=== PATIENT | female | born 1975 | race Caucasian/White ===

== ENCOUNTER 2017-08-20 16:36 | Emergency (ER) | END 2017-08-20 18:50 | disposition home or self-care (01) ==

== ENCOUNTER 2017-08-24 11:55 | Emergency (ER) | END 2017-08-24 14:15 | disposition home or self-care (01) ==

== ENCOUNTER 2018-04-26 21:02 | Emergency (ER) | END 2018-04-27 01:50 | disposition home or self-care (01) ==

== ENCOUNTER 2018-05-05 15:17 | Emergency (ER) | payer SELFPAY ==
[~2018-05-05] VITALS: Wt 70.8 kg
[~2018-05-05 15:17] MED LIST: DOCU-144 PO; FAMO20TA18 PO; GLYC1SUP92 PR; IBUP-1542 PO; ONDA4TAB8 PO
[2018-05-05 15:20] VITALS: BP 135/85; PULSE 89; RESP 20
[2018-05-05] MEDS ORDERED: ACETAMINOPHEN 325 MG TAB PO ONE (16:00)
[2018-05-05] MEDS ORDERED: IBUPROFEN 600 MG TAB PO ONE (16:00)
[2018-05-05] MEDS ORDERED: CEPH-443 PO (16:00)
[2018-05-05] MEDS ORDERED: IBUP-1542 PO (16:00)
[2018-05-05] MEDS ORDERED: BACITRACIN 0.9 GM OINT ONE (16:03)
--- NOTE | 2018-05-05 16:07 | ERD ---
ER Documentation Chief Complaint Chief Complaint left hand index finger suture removal x8days HPI 42-year-old female presents emerged department for suture removal of a repaired laceration that was done 8 days prior to being seen. On her left index finger. Patient states that she still has pain rates it moderate in severity. Denies any fevers. ROS All systems reviewed and are negative except as per history of present illness. Medications Home Meds Active Scripts Ibuprofen* (Motrin*) 600 Mg Tab, 600 MG PO Q6H PRN for PAIN AND OR ELEVATED TEMP, #30 TAB Prov:LIZ SOLIMANC 05/05/18 Cephalexin* (Keflex*) 500 Mg Capsule, 500 MG PO QID for 5 Days, CAP Prov:LIZ SOLIMANC 05/05/18 Ibuprofen* (Motrin*) 600 Mg Tab, 600 MG PO Q6H PRN for PAIN AND OR ELEVATED TEMP, #30 TAB Prov:KATTY MILLS NP 04/27/18 Famotidine* (Famotidine*) 20 Mg Tablet, 20 MG PO BID, #60 TAB Prov:CARMELINA WEISS 08/24/17 Ondansetron Hcl* (Zofran*) 4 Mg Tablet, 4 MG PO Q6H for NAUSEA AND/OR VOMITING, #30 TAB Prov:CARMELINA WEISS 08/24/17 Glycerin* (Glycerin (Adult)*) 1 Each Supp.rect, 1 EACH CA DAILY PRN for CONSTIPATION, #30 SUPP.RECT Prov:NADEEM WALKER PA-C 08/20/17 Docusate Sodium* (Colace*) 100 Mg Capsule, 100 MG PO TID, #30 CAP Prov:NADEEM WALKER PA-C 08/20/17 Allergies Allergies: Coded Allergies: No Known Allergy (Unverified , 08/20/17) PMhx/Soc Medical and Surgical Hx: pt denies Surgical Hx History of Surgery: No Anesthesia Reaction: No Hx Neurological Disorder: No Hx Respiratory Disorders: No Hx Cardiac Disorders: No Hx Psychiatric Problems: No Hx Miscellaneous Medical Probl: Yes (left breast cyst) Hx Alcohol Use: No Hx Substance Use: No Hx Tobacco Use: No Smoking Status: Never smoker Physical Exam Vitals Vital Signs Date Temp Pulse Resp B/P (MAP) Pulse Ox O2 O2 Flow FiO2 Time Delivery Rate 05/05/18 97.6 89 20 135/85 100 15:20 (102) Physical Exam General: WD/WN, in no apparent distress, non-toxic appearing HENT: NC/AT Eyes: Conjunctiva normal Neck: Supple Pulm: Clear to auscultation, normal labored breathing; no wheezing/rales/rhonchi heard CV: Good capillary refill GI: Non-distended, no guarding Back: No masses Ext: No clubbing, cyanosis, or edema Neuro: Moves on all fours Skin: 6 sutures intact Psych: Normal mood Results 24 hrs Current Medications Medications Dose Sig/Wen Start Time Status Last (Trade) Ordered Route PRN Stop Time Admin Dose Reason Admin Ibuprofen 600 mg ONCE ONCE 05/05/18 DC 05/05/18 (Motrin) PO 16:00 16:03 05/05/18 16:01 650 mg ONCE ONCE 05/05/18 DC 05/05/18 Acetaminophen PO 16:00 16:03 (Tylenol 05/05/18 Tab) 16:01 Bacitracin 1 applic STK-MED 05/05/18 DC (Bacitracin ONCE .ROUTE 16:03 Oint (Ud)) 05/05/18 16:04 Procedures/MDM Patient presents to the ER for a suture removal. No dehiscence or infection seen. She was given Keflex for prophylaxis. Sutures were removed without complications. Departure Diagnosis: Primary Impression: Encounter for removal of sutures Condition: Stable Patient Instructions: Suture Removal, No Complication Referrals: NO PRIMARY,CARE PHYSICIAN (PCP) Additional Instructions: FOLLOW UP WITH YOUR PRIMARY CARE PHYSICIAN TOMORROW.Return to this facility if you are not improving as expected. Take all medicines as directed. Return to this facility if you are not improving as expected. LIZ SOLIMAN PA-C May 05, 2018 16:07
== END 2018-05-05 16:14 | disposition home or self-care (01) ==
LOC: FTE 15:17
DX: Z48.02 Encounter for removal of sutures (principal)
CPT/HCPCS: 99283